=== PATIENT | male | born 1970 | race Caucasian/White ===

== ENCOUNTER 2023-05-08 09:21 | Emergency (ER) | payer MEDICARE, OTHER ==
[~2023-05-08] VITALS: Ht 170.2 cm; Wt 63.6 kg
--- NOTE | 2023-05-08 11:08 | NUR ---
PT C/O CP PER LUIS TIRADO. EKG ORD.
--- NOTE | 2023-05-08 11:18 | NUR ---
RN COMPLETED OFFICIAL ASSESSMENT AT THIS TIME FOR LEARNING PURPOSES OF JAYE SMITH RN.
--- NOTE | 2023-05-08 11:25 | NUR ---
UPON RN CARDIOVASCULAR PT STATED THAT HE HAS ATTEMPTED SUICIDE IN THE PAST BUT IS NOT CURRENTLY HAVING THOUGHTS OF SUICIDE OR PLANS TO HURT HIMSELF AT THIS TIME. PT STATED THAT HE JUST NEEDS HELP GETTING HIS MEDICATIONS FILLED. PT STATES THAT HE WAS DROPPED OFF AT THE HOSPITAL AND DOES NOT HAVE TRANSPORTATION. SAMPLE CARD MAKER LINETTE IS ASSIGNED TO THE PATIENT TO HELP WITH RESOURCES.
--- NOTE | 2023-05-08 14:57 | NUR ---
Spoke with Anu older adult social work specialist on the phone. Will be down to see patient.
--- NOTE | 2023-05-08 15:55 | NUR ---
PER MARILYN SUE SHE WILL OBTAIN DRY CLOTHES FOR PT/RN SHOULD OBTAIN A SACK LUNCH AND BUS PASS TO TRAIN STATION. MARILYN ADVISED HIS TRAIN LEAVES AT 0230.
--- NOTE | 2023-05-08 16:37 | NUR ---
RN LEFT VM FOR DIETARY AND FAXED REQ FOR SACK MEAL PER SW SO THAT PT MAY BE DISCHARGED.
--- NOTE | 2023-05-08 16:59 | NUR ---
APOLINAR PATIÑO NEEDS PT PREFERRED PHARM. PT IS NOT SURE WHAT [facility] HE WILL BE AT OR THE LOCATION. RN WILL PAGE SW TO INQ SO THAT PREFERRED PHARM CAN BE OBTAINED. SW HAS NOT RETURNED WITH DRY CLOTHES PER PT SO RN WILL INQ ETA.
[2023-05-08 17:00] VITALS: BP 119/86; PULSE 78; RESP 13; TEMP 97.9; O2SAT 98
--- NOTE | 2023-05-08 17:10 | NUR ---
RN NOTIFIED PA RATTS ABOUT PT STATUS/SW WILL BE PAGED FOR NAME OF SKILLED NURSING SO THAT PREFERRED PHARM MAY BE OBTAINED. PT STILL NEEDS SAC LUNCH AND DRY CLOTHES.
--- NOTE | 2023-05-08 17:20 | NUR ---
RN PAGED SW- ED-12- NEED NAME OF LONGTERM SO THAT PREFERRED PHARM MAY BE OBTAINED FOR RATTS. STILL TRYING TO GET SACK LUNCH FROM DIETARY. BETZAIDA
--- NOTE | 2023-05-08 17:22 | NUR ---
Graeme ordoñez in ED - 05/08/23 at 1723 by JESI LUIS TIRADO IN ORIENTATION NOTIFIED UC TO OBTAIN RENETTA/LUIS TIRADO CONFIRMED ADDRESS.
--- NOTE | 2023-05-08 17:23 | NUR ---
CORRECTION TO LAST NOTE/MADE IN ERROR ON WRONG PT. NOTE UNDONE
--- NOTE | 2023-05-08 17:25 | NUR ---
RN PAGED SW WITH 2ND MESSAGE- ED12 PT STATES HE STILL DOES NOT HAVE DRY CLOTHES. RN LEFT VM AND FAXED REQ TO DIETARY FOR SACK LUNCH. PT STILL DOES NOT HAVE.
--- NOTE | 2023-05-08 17:50 | NUR ---
MILY GUEVARA OBTAINED AND PROVIDED TO PT/PER WILDER MARISCAL RN HAVE RX'S SENT TO [facility] AT [address]/WE WILL HAVE I TAKE PT TO THIS PHARM TO FILL, WAIT FOR HIM, THEN BRING HIM BACK TO THE HOSPITAL. AFTER THIS WE WILL PROVIDE A BUS PASS TO TRAIN STATION TO CATCH HIS TRAIN BY 0230.
[2023-05-08] MEDS ORDERED: LORA-269 PO (18:07)
[2023-05-08] MEDS ORDERED: BENZ1TAB93 PO (18:07)
[2023-05-08] MEDS ORDERED: LAMO100T PO (18:07)
[2023-05-08] MEDS ORDERED: CLOZ100T PO (18:07)
[2023-05-08] MEDS ORDERED: DULO-31 PO (18:07)
[2023-05-08] MEDS ORDERED: HYDR-3686 PO (18:07)
--- NOTE | 2023-05-08 18:10 | NUR ---
RN CALLED [facility] TO SEE IF THEY RECD E-RX AND THEY HAVE NOT. RN CONFIRMED THEIR FAX # IS [phone]. RN WILL NOTIFY APOLINAR PATIÑO SO THAT THE RX'S CAN BE SENT.
--- NOTE | 2023-05-08 18:12 | NUR ---
RN NOTIFIED HAROON JIANG/WILDER CHARGE THAT [facility] DID NOT REC RX. HAROON DID ESCRIBE AND CONFIRMED WITH WILDER. RN WILL CALL IN RX AND REQ THEY BE FILLED KAREN.
--- NOTE | 2023-05-08 19:01 | NUR ---
RN CALLED [facility] TO CONFIRM THEY RECD PT RX. PER [facility] STAFF THEY WILL FILL THE RX FOR US KAREN, HOWEVER, THE BENZTROPINE WAS SENT TWICE AND WE NEED TO CONFIRM CORRECT DOSE AND THEY DO NOT CARRY CLOZARIL. RN WILL NOTIFY HAROON. RN NOTIFIED GEORGE AND HE WILL ASSUME CARE OF THE PATIENT AND MAKE SURE RX'S ARE FILLED/PT IS SENT TO TRAIN STATION.
--- NOTE | 2023-05-08 19:16 | NUR ---
RN NOTIFIED APOLINAR PATIÑO THAT [facility] HAS TWO RX FOR BENZTROPINE 1MG/2MG DAILY AND THEY NEED TO CONFIRM WHICH ONE AND THAT THEY DO NOT CARRY CLOZARIL/[facility] CONTACT [facility]. PER HAROON HE WILL CALL PHARM TO CORRECT THE RXS AND RN PROVIDED THE # TO CALL.
--- NOTE | 2023-05-08 19:18 | NUR ---
RN LOCATED HALFWAY PT IS BEING SENT TO [facility] IN [place] AND NOTIFIED GEORGE TIRADO.
--- NOTE | 2023-05-08 20:05 | NUR ---
CLOTHS GIVEN CAB CALLED TO [facility]
== END 2023-05-08 20:06 | disposition home or self-care (01) ==
LOC: ER 09:22
DX: F29 Unspecified psychosis not due to a substance or known physiological condition (principal); Z76.0 Encounter for issue of repeat prescription
CPT/HCPCS: 93005; 99285